=== PATIENT | male | born 1990 | race Caucasian/White ===

== ENCOUNTER 2019-01-10 07:09 | Emergency (ER) | payer MEDICAID ==
[~2019-01-10] VITALS: Ht 96.5 cm; Wt 131.9 kg
[2019-01-10 07:17] VITALS: Ht 96.5 cm; Wt 131.9 kg
[2019-01-10] MEDS ORDERED: IBUPROFEN800 MG PO (08:09)
[2019-01-10] MEDS ORDERED: ACETAMINOPHEN500 M1 PO (08:09)
[2019-01-10 08:20] VITALS: BP 140/90
== END 2019-01-10 08:21 | disposition home or self-care (01) ==
LOC: D.ER 07:09
DX: G56.22 Lesion of ulnar nerve, left upper limb (principal)